=== PATIENT | female | born 1960 | race Two or more races ===

== ENCOUNTER 2018-12-03 14:13 | Emergency (ER) | payer MEDICAID, OTHER ==
[~2018-12-03] VITALS: Ht 162.6 cm; Wt 83.5 kg
[2018-12-03] MEDS ORDERED: ASPIRIN 325 MG TABLET PO ONE (14:30)
[2018-12-03] MEDS ORDERED: ALPRAZOLAM 0.5 MG TABLET PO ONE (14:30)
[2018-12-03] MEDS ORDERED: ALPRAZOLAM 0.5 MG TABLET ONE (14:34)
[2018-12-03] MEDS ORDERED: ASPIRIN 325 MG TABLET ONE (14:34)
--- NOTE | 2018-12-03 14:44 | NUR ---
BIB DAUGHTER, C/O CP PRESSURE LIKE PAIN, NON RADIATING ON AND OFF x 2 WEEKS. PT AAOX4, VSS. RR EVEN & UNLABORED. DENIES SOB, DIZZINESS, N/V, WEAKNESS @ THIS TIME. PLACED ON RING STRIKER. NSR, NO ECTOPY NOTED. DAUGHTER @ BS & WILLL CONT TO MONITOR.
[2018-12-03 14:47] LABS: BASOPHILS % (AUTO) 0.7 % (0.0-2.0); HEMATOCRIT 38 % (33-45); HEMOGLOBIN 12.9 g/dL (11.5-14.8); LYMPHOCYTES # (AUTO) 0.9 /CMM (0.8-4.8); LYMPHOCYTES % (AUTO) 13.3 % (20.0-44.0); MEAN CORPUSCULAR HGB CONC 34 g/dl (31.0-36.0); MEAN CORPUSCULAR VOLUME 92 fL (82-100); MONOCYTES # (AUTO) 0.3 /CMM (0.1-1.30); MONOCYTES % (AUTO) 4.6 % (2.0-12.0); NEUTROPHILS # (AUTO) 5.5 /CMM (1.8-8.9); NEUTROPHILS % (AUTO) 79.4 % (43.0-81.0); PLATELET COUNT (AUTO) 218 /CMM (150-450); RED BLOOD CELL COUNT(AUTO) 4.11 MIL/uL (4.0-5.2); WHITE BLOOD COUNT (AUTO) 6.9 K/uL (4.3-11.0)
[2018-12-03 14:59] LABS: CALCIUM, SERUM 8.7 mg/dL (8.5-10.1); CARBON DIOXIDE 27 mmol/L (21-32); CHLORIDE 103 mmol/L (98-107); CREATININE 0.8 mg/dL (0.6-1.3); GLUCOSE 118 mg/dL (74-106); POTASSIUM 3.8 mmol/L (3.5-5.1); SODIUM SERUM 141 mmol/L (136-145); UREA NITROGEN, BLOOD 13 mg/dL (7-18)
[2018-12-03 16:04] VITALS: BP 127/89
--- NOTE | 2018-12-03 16:04 | NUR ---
Patient discharged to home in stable condition. Written and verbal after care instructions given. Patient verbalizes understanding of instruction.IV removed. Catheter intact and site benign. Pressure and 4x4 applied to site. No bleeding noted.
== END 2018-12-03 16:04 | disposition home or self-care (01) ==
LOC: ER 14:19
DX: F41.9 Anxiety disorder, unspecified (principal); R07.89 Other chest pain
CPT/HCPCS: 36415; 71045-TC; 80048-TC; 84484-TC; 85025-TC